=== PATIENT | male | born 1985 | race Caucasian/White ===

== ENCOUNTER 2016-09-29 18:41 | Emergency (ER) | payer MEDICAID ==
[~2016-09-29] VITALS: Ht 170.2 cm; Wt 102.1 kg
[2016-09-29 18:53] VITALS: BP 150/96
--- NOTE | 2016-09-29 18:57 | NUR ---
PATIENT AMBULATED TO BED 3.
--- NOTE | 2016-09-29 19:05 | NUR ---
PATIENT PRESENTS TO ED WITH C/O CONGESTION, COUGH,DIZZINESS AND RIGHT EYE REDNESS . PT STATES IT STARTED 2 DAYS AGO. DENIES N/V/D; SKIN IS PINK/WARM/DRY; AAOX4 WITH EVEN AND STEADY GAIT; HR EVEN AND REGULAR; PT DENIES ANY FEVER; PATIENT STATES PAIN OF 3/10 AT THIS TIME; VSS; PATIENT POSITIONED FOR COMFORT; HOB ELEVATED; BEDRAILS UP X2; BED DOWN. ER MD MADE AWARE OF PT STATUS.
--- NOTE | 2016-09-29 19:08 | NUR ---
Patient being evaluated by physician at bedside.
--- NOTE | 2016-09-29 19:18 | NUR ---
GOT REPORT FROM SRIKANTH MOCTEZUMA. PATIENT AT BED, NO S/SX OF DISTRESS.
--- NOTE | 2016-09-29 19:20 | NUR ---
REPORT GIVEN TO RN ULYSIS Addendum: 09/29/16 at 1920 by MEDARO REPORT GIVEN TO RN ULYSIS AND RN PIN
--- NOTE | 2016-09-29 19:51 | NUR ---
Patient discharged with v/s stable. Written and verbal after care instructions given and explained. Patient alert, oriented and verbalized understanding of instructions. Ambulatory with steady gait. All questions addressed prior to discharge. ID band removed. Patient advised to follow up with PMD. Rx of AZITHROMYCIN 250 MG, TOBAMYCIN 0.3% OPTHALMIC SOLUTION, TYLENOL WITH CODEINE 120MG-12MG/5ML given. Patient educated on indication of medication including possible reaction and side effects. Opportunity to ask questions provided and answered.
[2016-09-29 19:53] VITALS: BP 145/85
== END 2016-09-29 19:51 | disposition home or self-care (01) ==
LOC: MED 18:41
DX: J40 Bronchitis, not specified as acute or chronic (principal); J11.1 Influenza due to unidentified influenza virus with other respiratory manifestations; H10.9 Unspecified conjunctivitis; J45.909 Unspecified asthma, uncomplicated; F17.210 Nicotine dependence, cigarettes, uncomplicated

== ENCOUNTER 2016-10-01 03:25 | Emergency (ER) | payer MEDICAID ==
[~2016-10-01] VITALS: Ht 167.6 cm; Wt 108.9 kg
[2016-10-01 03:37] VITALS: BP 157/108
--- NOTE | 2016-10-01 03:43 | NUR ---
PT TAKEN TO OF
--- NOTE | 2016-10-01 03:45 | NUR ---
Dr. Clark evaluating patient at bedside.
[2016-10-01] MEDS ORDERED: predniSONE 20 MG TAB PO ONE (03:50)
[2016-10-01] MEDS ORDERED: ALBUTEROL 0.083% 2.5 MG/3 ML NEBU INH ONE (03:50)
--- NOTE | 2016-10-01 03:57 | NUR ---
PT MOVED TO BED 8
--- NOTE | 2016-10-01 04:01 | NUR ---
31/M PATIENT PRESENT TO ED WITHC/O PERSISTENT COUGH AND FLU. PATIENT STATES HE WAS HERE YESTERDAY NIGHT FOR SAME REASON. WAS PRESCRIBED TYLENOL WITH CODEINE. DENIES N/V/D; SKIN IS PINK/WARM/DRY; AAOX4 WITH EVEN AND STEADY GAIT; LUNGS CLEAR BL; HR EVEN AND REGULAR; PT DENIES ANY FEVER, CP, SOB, OR COUGH AT THIS TIME; PATIENT STATES PAIN OF 7/10 AT THIS TIME; VSS; PATIENT POSITIONED FOR COMFORT; HOB ELEVATED; BEDRAILS UP X2; BED DOWN. ER MD MADE AWARE OF PT STATUS.
--- NOTE | 2016-10-01 04:06 | NUR ---
RT AT BEDSIDE FOR TREATMENT
--- NOTE | 2016-10-01 04:25 | NUR ---
Tram cerrato in [facility] - 10/01/16 at 0425 by UMAIR PT TAKEN TO BED 8
--- NOTE | 2016-10-01 04:25 | NUR ---
PT TAKEN TO CT Addendum: 10/01/16 at 0436 by HUEYO PT TAKEN TO XRAY
--- NOTE | 2016-10-01 04:33 | NUR ---
PT RETURN FROM XRAY
--- NOTE | 2016-10-01 05:16 | NUR ---
Patient discharged with v/s stable. Written and verbal after care instructions given and explained. Patient alert, oriented and verbalized understanding of instructions. Ambulatory with steady gait. All questions addressed prior to discharge. ID band removed. Patient advised to follow up with PMD. Rx of PREDNISONE 20 MG, ALBUTEROL 90MCG/ACTUATION given. Patient educated on indication of medication including possible reaction and side effects. Opportunity to ask questions provided and answered.
[2016-10-01 05:19] VITALS: BP 136/83
== END 2016-10-01 05:16 | disposition home or self-care (01) ==
LOC: MED 03:25
DX: J98.01 Acute bronchospasm (principal); J45.909 Unspecified asthma, uncomplicated
CPT/HCPCS: 71020; 94640; 99284; J7512; J7613

== ENCOUNTER 2017-10-16 00:04 | Emergency (ER) | payer MEDICAID ==
[~2017-10-16] VITALS: Ht 170.2 cm; Wt 119.4 kg
[2017-10-16 00:11] VITALS: BP 120/65
--- NOTE | 2017-10-16 00:17 | NUR ---
PT TAKEN TO BED 11
--- NOTE | 2017-10-16 00:19 | NUR ---
PT BIB FAMILY C/O SORE THROAT/DIZZY X 1DAY. PT DENIES N/V/D; SKIN IS INTACT, PINK/WARM/DRY; AAOX4, PERRL, WITH EVEN AND STEADY GAIT; LUNGS CLEAR BL, BREATHING UNLABORED; HR EVEN AND REGULAR, BL PERIPHERAL PULSES PRESENT; BS ACTIVE X4, NO TENDERNESS TO PALPATION. PT DENIES ANY FEVER, CP, SOB, OR COUGH AT THIS TIME; PT STATES 6/10 PAIN AT THIS TIME; VSS; PATIENT POSITIONED FOR COMFORT; HOB ELEVATED; BEDRAILS UP X2; BED DOWN.
[2017-10-16 01:29] VITALS: BP 121/68
--- NOTE | 2017-10-16 01:31 | NUR ---
Patient discharged with v/s stable. Written and verbal after care instructions given and explained. Patient alert, oriented and verbalized understanding of instructions. Ambulatory with steady gait. All questions addressed prior to discharge. ID band removed. Patient advised to follow up with PMD. Rx of AMOXICILLIN 500MG, IBU given. Patient educated on indication of medication including possible reaction and side effects. Opportunity to ask questions provided and answered.
== END 2017-10-16 01:31 | disposition home or self-care (01) ==
LOC: MED 00:04
DX: J02.0 Streptococcal pharyngitis (principal); J45.909 Unspecified asthma, uncomplicated
CPT/HCPCS: 36415; 87081; 87804; 99284